=== PATIENT | male | born 2000 | race Caucasian/White ===

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

== ENCOUNTER 2023-12-05 10:21 | Emergency (ER) | payer OTHER, SELFPAY ==
[2023-12-05 10:22] VITALS: BP 138/70; PULSE 59; RESP 14; TEMP 36.5; O2SAT 96; BMI 25.7
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
[2023-12-05 12:20] VITALS: BP 140/68; PULSE 60; RESP 20; TEMP 37; O2SAT 100
== END 2023-12-05 12:26 | disposition home or self-care (01) ==
PROVIDERS: Emergency Provider Student in an Organized Health Care Education/Training Program
DX: S00.83XA Contusion of other part of head, initial encounter (principal); V47.0XXA Car driver injured in collision with fixed or stationary object in nontraffic accident, initial encounter
CPT/HCPCS: 70450; 99283; 99284

== ENCOUNTER 2024-11-30 22:37 | Emergency (ER) | payer OTHER, SELFPAY ==
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
[2024-11-30 22:49] VITALS: BP 130/87; PULSE 69; RESP 16; TEMP 36.9; O2SAT 98; BMI 25.7
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
[2024-12-01 00:43] VITALS: BP 125/72; PULSE 65; RESP 16; O2SAT 100
== END 2024-12-01 00:46 | disposition home or self-care (01) ==
PROVIDERS: Emergency Provider Family Medicine; PCP Family Medicine
DX: S62.101A Fracture of unspecified carpal bone, right wrist, initial encounter for closed fracture (principal); X58.XXXA Exposure to other specified factors, initial encounter
CPT/HCPCS: 29125; 73130; 99282; 99283

== ENCOUNTER → 2025-01-10 07:20 | Outpatient (CLI) | payer OTHER, SELFPAY ==
--- NOTE | 2025-01-10 07:21 | DI.CT.S_ITS ---
PROCEDURE: CT WRIST RIGHT WITHOUT CON INDICATIONS: Triquetrum Fracture TECHNIQUE: Noncontrast 1 mm axial sections acquired through the carpal bones, with coronal and sagittal reformats. COMPARISON: [facility], CR, XR WRIST RT MIN 3V, 12/19/2024, 14:50. [facility], CR, XR WRIST RT MIN 3V, 01/09/2025, 14:22. FINDINGS: Image quality: Excellent. Bones: Wrist alignment is anatomic. Oblique fracture involving dorsal aspect of hamate with slight dorsal and proximal displacement at fracture site. There is partial bony union at fracture site suggestive of subacute fracture in this area. Subtle cortical irregularity involving dorsal and ulnar aspect of triquetrum with partial bony union consistent with subacute fracture in this area. Partially united oblique fracture is also noted involving dorsal aspect of capitate with fracture line extending to 3rd CMC joint space and partial bony union at fracture site series 6, image 82. Small calcification adjacent to ulnar aspect of 5th metacarpal base concerning for tiny chip fracture in this area. No other fracture or dislocation. No evidence of avascular necrosis. No suspicious bony lesions. Soft tissues: There is mild dorsal soft tissue swelling over triquetral and hamate fracture site. No discrete drainable fluid collection or abnormal soft tissue calcifications. No full-thickness extensor or flexor tendon rupture. No soft tissue mass. IMPRESSION: 1. Subacute appearing slightly displaced oblique fracture involving dorsal aspect of hamate as above. 2. Subacute appearing minimally displaced or nondisplaced intra-articular fracture involving dorsal aspect of distal capitate. 3. Subacute appearing nondisplaced or slightly displaced fracture involving dorsal aspect of distal triquetrum as above. 4. Possible tiny chip fracture involving ulnar aspect of 5th metacarpal base. No other fracture or dislocation. No evidence of avascular necrosis. 5. Mild dorsal wrist soft tissue swelling. No full-thickness rim wrist tendon rupture. No abnormal soft tissue calcifications or drainable fluid collection. Dictated by: Govind Motley M.D. on 01/11/2025 at 11:09 Approved by: Govind Motley M.D. on 01/11/2025 at 11:15
== END ==
LOC: CT 07:21
PROVIDERS: PCP Family Medicine; Referring Provider Family Medicine; Visit Provider Physician Assistant Surgical
DX: S62.111D Displaced fracture of triquetrum [cuneiform] bone, right wrist, subsequent encounter for fracture with routine healing (principal); S62.13 Fracture of capitate [os magnum] bone; S62.141D Displaced fracture of body of hamate [unciform] bone, right wrist, subsequent encounter for fracture with routine healing; M79.89 Other specified soft tissue disorders; X58.XXXD Exposure to other specified factors, subsequent encounter
CPT/HCPCS: 73200